=== PATIENT | female | born 1980 | race Caucasian/White ===

== ENCOUNTER → 2017-02-14 | Outpatient (CLI) | payer OTHER ==
--- NOTE | 2017-02-14 15:26 | RAD ---
DATE: 02/14/2017 EXAM: DIGITAL DIAGNOSTIC BILATERAL, BREAST RIGHT HISTORY: Right breast pain COMPARISON: 11/30/2013 This study was interpreted with the benefit of Computerized Aided Detection (CAD). FINDINGS: There are scattered fibroglandular densities in the right breast. A cluster of benign-appearing lymph node type densities in the axillary tail region of the right breast is unchanged. There are numerous additional small axillary lymph nodes which also appear to be unchanged. There is streaky area of increased density in the upper outer quadrant of the right breast as best seen on the oblique view, which appears more prominent than on the previous study. This is asymmetric compared to the left. Spot compression views of that region did not demonstrate a discrete mass. No suspicious microcalcifications are evident. Right breast ultrasound, 02/14/2017: A targeted ultrasound exam of the upper outer quadrant of the right breast was performed. Normal heterogeneous fibroglandular shadows are present. No cystic or solid breast mass was identified. IMPRESSION: 1. Unchanged axillary tail nodules on the right compatible with intramammary lymph nodes. 2. Mild right upper outer quadrant breast asymmetry for which no sonographic correlate was delineated. The patient is receiving exogenous hormones which may be contributing to this finding. Given the patient's family history of breast malignancy, breast MR may be useful for further evaluation. BI-RADS 0-incomplete RECOMMENDED FOLLOW-UP: ADD ADDITIONAL IMAGING PQRS compliance statement: Patient information was entered into a reminder system with a target due date for the next mammogram. Mammography is a sensitive method for finding small breast cancers, but it does not detect them all and is not a substitute for careful clinical examination. A negative mammogram does not negate a clinically suspicious finding and should not result in delay in biopsying a clinically suspicious abnormality. "Our facility is accredited by the [employer] Mammography Program."
== END | disposition home or self-care (01) ==
LOC: MAMMO 13:44
PROVIDERS: ATTEND Obstetrics & Gynecology
DX: N63 Unspecified lump in breast (principal)
CPT/HCPCS: 76641; G0204; 77066